=== PATIENT | male | born 1980 | race Caucasian/White ===

== ENCOUNTER 2017-04-17 02:41 | Emergency (ER) | payer OTHER ==
[~2017-04-17] VITALS: Ht 177.8 cm; Wt 108.9 kg
[2017-04-17] MEDS ORDERED: FLOMAX0.4 MG PO (04:20)
[2017-04-17] MEDS ORDERED: PERCOCET 5-3251 EACH PO (04:20)
[2017-04-17] MEDS ORDERED: ZOFRAN ODT4 MG PO (04:20)
== END 2017-04-17 04:50 | disposition home or self-care (01) ==
LOC: ED 02:41
DX: N23 Unspecified renal colic (principal)
CPT/HCPCS: 74176; 80053; 81001; 85025; 96361; 96374; 96375; 99284; J1170; J1885; J2405; J7030

== ENCOUNTER 2017-11-11 20:26 | Emergency (ER) | payer OTHER, SELFPAY ==
[~2017-11-11] VITALS: Ht 177.8 cm; Wt 108.9 kg
[~2017-11-11 20:26] MED LIST: FLOMAX0.4 MG PO; PERCOCET 5-3251 EACH PO; ZOFRAN ODT4 MG PO
[2017-11-11] MEDS ORDERED: PERCOCET 5-3251 EACH PO (23:02)
[2017-11-11] MEDS ORDERED: FLOMAX0.4 MG PO (23:04)
== END 2017-11-11 23:18 | disposition home or self-care (01) ==
LOC: ED 20:26
DX: N20.2 Calculus of kidney with calculus of ureter (principal); Z87.442 Personal history of urinary calculi
CPT/HCPCS: 74176; 80053; 81001; 85025; 96374; 96375; 99284; J1885; J2270; J2405

== ENCOUNTER 2018-05-21 11:01 | Emergency (ER) | payer OTHER ==
[~2018-05-21] VITALS: Ht 177.8 cm; Wt 108.9 kg
[2018-05-21] MEDS ORDERED: PERCOCET 5-3251 EACH PO (12:16)
== END 2018-05-21 12:34 | disposition home or self-care (01) ==
LOC: ED 11:01
DX: N20.1 Calculus of ureter (principal); Z79.899 Other long term (current) drug therapy
CPT/HCPCS: 80053; 81001; 85025; 96361; 96374; 96375; 99284; J1885; J2270; J2405; J7030

== ENCOUNTER 2018-05-25 16:10 | Day surgery (SDC) | payer OTHER ==
[~2018-05-25] VITALS: Ht 177.8 cm; Wt 108.9 kg
--- NOTE | ~2018-05-25 | OR ---
[facility] [address] [facility] [place], [place] [address] Draft DATE OF OPERATION: 05/25/2018 SURGEON: Jayson Christianson MD PREOPERATIVE DIAGNOSIS: Large right ureterovesical junction calculus. POSTOPERATIVE DIAGNOSIS: Approximately 9 mm large right ureterovesical junction calculus. NAMES OF PROCEDURES: 1. Urethral dilation using [place] sounds, from 18-[place]ankan to 24-Sri [place]ankan. 2. Diagnostic cystoscopy with right retrograde pyelogram. 3. Right ureteroscopy with laser lithotripsy and basket extraction of stones. 4. Insertion of right ureteral stent. ANESTHESIA: General. ESTIMATED BLOOD LOSS: Minimal. COMPLICATIONS: None. SPECIMENS: Fragments of right ureteral calculus sent to the lab for stone analysis. DRAINS: A 6 x 26 cm contour double-J ureteral stent inserted into the right ureter. INDICATIONS FOR PROCEDURE: Mr. Matta is a very pleasant 38-year-old gentleman, who I met earlier this year when he presented to my clinic with a history of right-sided flank pain. At that time, he was found to have an approximately 7 x 8 mm distal right ureteral calculus. We discussed the rather low likelihood of spontaneous passage of the stone, and at that time the patient was placed on the schedule to undergo ureteroscopy with stone extraction in November 2017. The patient ultimately canceled the procedure at that time and now presented to my clinic last week with continued intermittent right-sided flank pain. He underwent a CT scan in [place], which revealed the presence of a rather large 9 PATIENT NAME: DENISE MATTA OPERATIVE REPORT DATE OF : 80 REPORT #: [id number] PHYSICIAN: JAYSON CHRISTIANSON MD PCP: NICOLAS CHÁVEZ DO REPORT IS CONFIDENTIAL AND NOT TO BE RELEASED WITHOUT AUTHORIZATION [facility] [address] [place], [place] [address] Draft mm right ureterovesical junction calculus with associated hydronephrosis. A few days later, he presented to my clinic with a KUB, which confirmed the presence of a large calcification in the area of the right ureterovesical junction. At that time, the patient consented to undergo right ureteroscopy with laser lithotripsy, basket extraction of stones, and likely ureteral stent insertion. OPERATIVE FINDINGS: On cystoscopy, there was no evidence of any suspicious masses or lesions. Bilateral ureteral orifices are in their normal anatomic location. The left ureteral orifice is effluxing clear urine. There is the presence of a calcification that appears to be in the early stage coming from the right ureteral orifice. This is consistent with a large right ureterovesical junction calculus. I am unable to gently manipulate the stone manually from the right ureteral orifice. Prior to insertion of the camera, I did dilate the urethra from 18-Sri [place]ankan to 24-S[place]ankan using Brooke sounds without difficulty. Once in the bladder, I did use a 270 micron fiber and the holmium laser via the cystoscope to initially break down the large stone into smaller fragments. I then removed the cystoscope and inserted a semi-rigid ureteroscope and continued fragmentation of the large ureteral calculus using a 270 micron fiber and holmium laser at 8 and 0.8 settings. The stone appeared to be imbedded into the distal right ureter, which is expected given the length of time the stone has been in this position. I was finally able to break the stone up into smaller pieces and successfully extract the stone using a Zero tip basket. Once I was satisfied that all the stones have been extracted, I inserted a cone-tipped catheter and performed a retrograde pyelogram. The retrograde pyelogram revealed no evidence of any remaining filling defects, consistent with stones within the right ureter. I then inserted a 0.035 Sensor wire into the right ureter and confirmed good position on fluoroscopy. Over the wire, I passed a 6 x 26 cm contour double-J ureteral stent into the right ureter under fluoroscopic guidance and direct vision. Once the wire was pulled, I was able to appreciate an adequate coil within the right renal pelvis along with an adequate coil within the bladder. The stones were then extracted from the patient's bladder using the cystoscope sheath. I did leave a string on the stent on the indwelling stent to allow for the patient to remove it in approximately 3 days on his own. Once the stent was in good position, the patient's bladder was then drained and the cystoscope was removed. The procedure was then terminated. The patient tolerated the procedure well without any complication. He will now be transferred to the Postanesthesia Care Unit in stable condition. DISPOSITION: I discussed the details of today's procedure with the patient's and answered all of her questions. He will be sent home later this evening once he awakes from general anesthetic. He has been asked to remove the indwelling stent using the string attached PATIENT NAME: DENISE MATTA OPERATIVE REPORT DATE OF : 80 REPORT #: [id number] PHYSICIAN: JAYSON CHRISTIANSON MD PCP: NICOLAS CHÁVEZ DO REPORT IS CONFIDENTIAL AND NOT TO BE RELEASED WITHOUT AUTHORIZATION [address] [address] Draft this Tuesday, May 29. He will be sent home with ketorolac 10 mg q.8 hours p.r.n. pain, dispense #15 along with Phenergan 25 mg q.6 hours p.r.n. nausea, dispense #20. He has then been asked to contact the clinic tomorrow in order to schedule a followup appointment in approximately 4-5 weeks for urine check and to discuss the results of the stone analysis. MD JENNIFER Fernandez/DARAL /[id number] Copies: ~ PATIENT NAME: DENISE MATTA OPERATIVE REPORT DATE OF : 80 REPORT #: [id number] PHYSICIAN: JAYSON CHRISTIANSON MD PCP: NICOLAS CHÁVEZ DO REPORT IS CONFIDENTIAL AND NOT TO BE RELEASED WITHOUT AUTHORIZATION
--- NOTE | 2018-05-25 19:15 | NUR ---
05/25/181914 Elissa Ribeiro 190 PT ARRIVED TO PACU, ORAL AIRWAY AND O2 IN PLACE. VITALS STABLE. TEMP 97.4. REPORT RECVD FROM CABLE WEAVER. WILL CONTINUE TO MONITOR.
[2018-05-25] MEDS ORDERED: KETOROLAC TROME10 MG PO (20:24)
--- NOTE | 2018-05-25 20:25 | NUR ---
PATIENT ARRIVED TO THE FLOOR AROUND 1944. VS STABLE; BP SLIGHTLY ELEVATED WHICH IS NORMAL FOR PATIENT. PATIENT UP TO VOID, SMALL AMOUNT 50 ML RED IN COLOR. BURNING WITH VOIDING; AZO PROVIDED WITH 1 TAB PERC AND IV ZOFRAN. PATIENT NOT NAUSEOUS AT THIS TIME BUT STATES HE GETS NAUSEAOUS WITH OPIOIDS. TOLERATING WATER AND JELLO. SOUP GIVEN PER REQUEST. AT BEDSIDE. IV FLUIDS FROM PACU INFUSING WITH STRAIGHT TUBING. PATIENT DENIES OTHER NEEDS AT THIS TIME.
[2018-05-25] MEDS ORDERED: PHENERGAN25 MG PO (20:26)
--- NOTE | 2018-05-25 20:33 | NUR ---
PATIENT CONTINUES TO HAVE NO NAUSEA. PAIN 3/10. BURNING WITH URINATION. 150ML URINE OUTPUT FOR SECOND VOID. PATIENT FEELS READY TO DC HOME. DC INSTRUCTIONS REVIEWED WITH PATIENT. HOME PRESCRIPTION PROVIDED. IV DC, WNL. PATIENT'S TO DRIVE HIM HOME.
== END 2018-05-25 20:56 | disposition home or self-care (01) ==
LOC: OPS 16:10 → DS 16:10 → OPS 17:30 → DS 17:30 → MS 19:50 → OPS 20:56
PROVIDERS: Urology
PROC: 0TC68ZZ Extirpation of Matter from Right Ureter, Via Natural or Artificial Opening Endoscopic (ICD-10-PCS; principal; 2018-05-25 17:30)
PROC: 0T768DZ Dilation of Right Ureter with Intraluminal Device, Via Natural or Artificial Opening Endoscopic (ICD-10-PCS; 2018-05-25 17:30)
PROC: BT1DYZZ Fluoroscopy of Right Kidney, Ureter and Bladder using Other Contrast (ICD-10-PCS; 2018-05-25 17:30)
DX: N20.1 Calculus of ureter (principal); Z79.899 Other long term (current) drug therapy; Z72.0 Tobacco use
CPT/HCPCS: 00918; 74450; 82365; C2617; J0330; J0696; J1100; J1885; J2250; J2270; J2405; J3010; J7120; Q9967

== ENCOUNTER 2019-01-25 07:21 | Emergency (ER) | payer OTHER ==
[~2019-01-25] VITALS: Ht 177.8 cm; Wt 104.3 kg
[~2019-01-25 07:21] MED LIST changes: +KETOROLAC TROME10 MG PO; +PHENERGAN25 MG PO
--- OUTSIDE RECORDS SUMMARY | 2019-01-25 07:24 | XMS ---
PreManage Notification: DENISE MATTA Security Travel Attendants Events No recent Security Events currently on file CRITERIA MET - PDMP CARE PROVIDERS Fani Jeter Current PAC PHONE: Unknown Rohith has no Care Guidelines for this patient. [facility] VISIT COUNT (12 MO.) 1 [facility] 2 CASSANDRA Velazquez TOTAL 3 NOTE: Visits indicate total known visits. ED/UCC VISIT TRACKING (12 MO.) 01/25/2019 07:22 CASSANDRA Gomez TYPE: Emergency COMPLAINT: - CHEST PAIN/SOB/L SHOULDER/ARM PAIN 05/21/2018 11:01 CASSANDRA Gomez TYPE: Emergency COMPLAINT: - ABD PAIN DIAGNOSES: - Other termite exterminator (current) drug therapy - Calculus of ureter - Unspecified abdominal pain 03/20/2018 12:25 [facility] TYPE: Emergency COMPLAINT: - FLANK PAIN DIAGNOSES: - Calculus of kidney - Other lower urinary tract calculus - flank pain INPATIENT VISIT TRACKING (12 MO.) No inpatient visits to display in this time frame [email or web address]
[2019-01-25] MEDS ORDERED: CITALOPRAM HBR20 MG PO (09:18)
[2019-01-25] MEDS ORDERED: XANAX1 MG PO (09:18)
[2019-01-25] MEDS ORDERED: VISTARIL25 MG PO (09:18)
--- NOTE | 2019-01-26 17:02 | EKG ---
[facility] [place] [facility] [address] [facility] [place], [place] [address] Signed Normal sinus rhythm Cannot rule out Inferior infarct , age undetermined Abnormal ECG No previous ECGs available Confirmed by TALIB MICHELLE DO ([id number]) on 01/26/2019 5:02:12 PM Electronically Signed By: TALIB MICHELLE DO 01/26/19 1702 PATIENT NAME: DENISE MATTA Electrocardiogram DATE OF : 80 PHYSICIAN: TALIB MICHELLE DO REPORT #: [id number] REPORT IS CONFIDENTIAL AND NOT TO BE RELEASED WITHOUT AUTHORIZATION
== END 2019-01-25 09:25 | disposition home or self-care (01) ==
LOC: ED 07:21
DX: K21.9 Gastro-esophageal reflux disease without esophagitis (principal); F41.9 Anxiety disorder, unspecified; I10 Essential (primary) hypertension; Z87.442 Personal history of urinary calculi
CPT/HCPCS: 71046; 80053; 84443; 84484; 85025; 93005; 93010; 99285-25